=== PATIENT | male | born 1950 | race Hispanic/Latino ===

== ENCOUNTER → 2025-03-23 | Outpatient (CLI) | payer OTHER ==
--- NOTE | 2025-03-23 14:45 | HMCIMG ---
Exam Type: US ARTERIAL BILAT LOW EXT DUPL Clinical Information: CELLULITIS Comparison: None Findings: Diffuse bilateral plaque is identified. There are normal triphasic waveforms of the bilateral common femoral artery through the popliteal artery, the right anterior tibial artery. There are biphasic waveforms of the left anterior tibial artery and dorsalis pedis artery consistent with moderate nonocclusive hemodynamically significant disease. There are monophasic abnormal waveforms of the bilateral posterior tibial artery consistent with severe nonocclusive disease. IMPRESSION: Peripheral vascular disease as noted.
--- NOTE | 2025-03-23 14:46 | HMCIMG ---
Exam Type: US VENOUS DOPPLER BILATERAL Clinical Information: CELLULITIS Comparison: None Findings: The examination shows normal deep venous system. There is normal compressibility at all levels. There is no intraluminal clot. There is no occlusion. Adequate response is obtained on augmentation. Impression: No evidence of DVT.
== END | disposition home or self-care (01) ==
LOC: RAH 13:45
PROVIDERS: ATTEND Nurse Practitioner Family
DX: I73.9 Peripheral vascular disease, unspecified (principal); L03.116 Cellulitis of left lower limb; L03.115 Cellulitis of right lower limb; R60.0 Localized edema
CPT/HCPCS: 93925; 93970